=== PATIENT | female | born 1965 | race Caucasian/White ===

== ENCOUNTER 2018-12-08 11:56 | Emergency (ER) | payer MEDICAID, SELFPAY ==
[2018-07-19 10:42] VITALS: BMI 42.7
[2018-12-08 11:57] VITALS: BP 157/100; PULSE 72; RESP 17; TEMP 36.9; O2SAT 95; BMI 44.1
[2018-12-08] MEDS: Orphenadrine 60 MG/2 ML Ampul IM (12:42)
[2018-12-08] MEDS: Ketorolac 60 MG/2 ML Vial IM (12:42)
--- NOTE | 2018-12-08 13:10 | RAD_ITS ---
STUDY: X-RAY - LUMBAR SPINE REASON FOR EXAM: Female, 53 years old. TECHNIQUE: 3 view(s) of the lumbar spine were obtained. COMPARISON: Previous lumbar spine exam obtained on 07/19/2018 FINDINGS: Normal lumbar lordosis. There is moderate dextro scoliosis of the thoracolumbar spine. This was previously identified and is unchanged. Normal vertebral bodies and endplates. Normal disc space heights. The soft tissue structures are unremarkable. RAD/Lumbar Spine 2 or 3 Views IMPRESSION: Moderate dextroscoliosis of the thoracolumbar spine which is unchanged. Electronically Signed: Nando Bartholomew, at 14:05 EDT Tel , Service support ,
--- NOTE | 2018-12-08 14:15 | ED.DCSUM_ITS ---
- ER Visit Summary Date of Service: 12/08/18 Chief Complaint: Hurt back History of Present Illness: The patient is a 53 F who injured her back about 5 days ago. She was picking up a microwave and twisted. She complains of lower back pain. She tried ibuprofen, Tylenol, he is, and ice with no improvement. She injured it again yesterday when she was picking up something at the grocery store. She does complain of some bilateral toe paresthesias. Denies any saddle anesthesias. Denies change in bowel or bladder. Denies any fever or systemic symptoms. Denies GI or symptoms. Physical Examination: Afebrile and vital signs are unremarkable. Alert and oriented. Normal inspection. She has mid lumbar tenderness to palpation over the spine. Good strength and sensation except for bilateral toe paresthesias. Good range of motion. Otherwise exam unremarkable. Test Results: Lumbar x-ray shows scoliosis, nothing acute. Emergency Department Course and Treatment: Patient likely has myofascial pain. She was advised that she can have disc herniation. We will treat at this time with Toradol and Norflex. On reevaluation, she was feeling better. I told her that this will likely resolve with continued medication. She may need further imaging or evaluation if she has continued symptoms. She should return right away if she has any new or worsening issues. Treatment Plan: As above Disposition: Discharge Impression: 1. Lumbar back pain This note was generated with App [employer] dictation software. It may contain incorrect words, spelling, and punctuation that were not noted in review of the chart prior to signing ED Disposition - Plan for ED Patient: Referrals: Ivone Escobar DO [Primary Care Provider] -
--- NOTE | 2018-12-08 14:17 | ED.DEP ---
ED Disposition - Plan for ED Patient: Instructions: BACK PAIN (Acute or Chronic) Prescriptions: cycloBENZAPRine HCl [Flexeril] 10 mg PO TID PRN #20 tab PRN Reason: Muscle Spasm Prescription Printed Naproxen [Naprosyn] 500 mg PO BID PRN #20 tab Prescription Printed Referrals: Ivone Escobar DO [Primary Care Provider] -
[2018-12-08 14:35] VITALS: RESP 17
== END 2018-12-08 14:36 | disposition home or self-care (01) ==
LOC: ED 12:35
PROVIDERS: Emergency Provider Emergency Medicine; Family Provider Family Medicine; PCP Family Medicine
DX: M54.5 Low back pain (principal); I10 Essential (primary) hypertension; R56.9 Unspecified convulsions; Z79.899 Other long term (current) drug therapy
CPT/HCPCS: 72100; 96372; 99282

== ENCOUNTER → 2019-01-11 | Outpatient (CLI) | payer MEDICAID, SELFPAY ==
--- NOTE | 2019-01-11 15:26 | RAD_ITS ---
STUDY: X-RAY - PELVIS AND LEFT HIP REASON FOR EXAM: Female, 53 years old. Hip pain TECHNIQUE: 3 views of the pelvis and hip. COMPARISON: None. FINDINGS: There is a non-specific bowel gas pattern. Normal visualized soft tissue structures. Normal bilateral iliac wings, sacroiliac joints and visualized sacrum. Normal bilateral superior and inferior pubic rami. Normal pubic symphysis. Normal bilateral ischial tuberosities. Normal visualized femoral head. Normal acetabulum. Normal hip joint. RAD/HIP, UNI W/ Pelvis 2-3 Views IMPRESSION: Normal x-ray examination of the pelvis and hip. Electronically Signed: Juan Albarado MD at 15:45 EST Tel , Service support ,
== END | disposition home or self-care (01) ==
PROVIDERS: Family Provider Family Medicine; PCP Family Medicine; Referring Provider Physician Assistant; Visit Provider Physician Assistant
DX: M25.552 Pain in left hip (principal)
CPT/HCPCS: 73502

== ENCOUNTER → 2020-06-06 12:21 | Outpatient (CLI) | payer MEDICAID, SELFPAY ==
[2019-01-11 16:02] VITALS: BMI 44.1
--- NOTE | 2020-06-06 12:32 | RAD_ITS ---
STUDY: X-RAY - CERVICAL SPINE REASON FOR EXAM: Female, 54 years old. NECK PAIN TECHNIQUE: 6 view(s) of the cervical spine were obtained. COMPARISON: None FINDINGS: Normal anterior atlantoaxial articulation. Normal odontoid process. Normal cervical lordosis. Normal vertebral bodies and endplates. Normal disc space heights. Normal visualized intervertebral neuroforamina. The soft tissue structures are unremarkable. RAD/Cerv Spine 4 or 5 Views IMPRESSION: Normal x-ray examination of the visualized cervical spine. Electronically Signed: Kar Perales MD at 13:05 EDT , Service support ,
== END ==
PROVIDERS: PCP Family Medicine; Visit Provider Nurse Practitioner Family
DX: M54.2 Cervicalgia (principal)
CPT/HCPCS: 72050

== ENCOUNTER 2021-02-24 22:50 | Emergency (ER) | payer MEDICAID, SELFPAY ==
[2021-02-24 22:51] VITALS: BP 175/90; PULSE 101; RESP 21; TEMP 37.1; O2SAT 95; BMI 46.8
--- NOTE | 2021-02-24 23:03 | RAD_ITS ---
STUDY: X-RAY CHEST REASON FOR EXAM: Female, 55 years old. chest pain TECHNIQUE: Single AP portable view of the chest. COMPARISON: None. FINDINGS: No focal infiltrates or effusions. No pneumothorax. Normal size heart. Normal mediastinum and rolf. Normal visualized pulmonary arteries. Normal visualized aortic arch and descending thoracic aorta. Normal visualized thoracic spine. Normal visualized ribs, clavicles, and shoulders. There is no demonstrated abnormality of the visualized soft tissue structures of the upper abdomen. RAD/Chest 1 View (Portable) IMPRESSION: Normal x-ray examination of the chest. Electronically Signed: Bernardo Garcias MD at 23:37 EST , Service support ,
--- NOTE | 2021-02-24 23:03 | EKG12_ITS ---
Test Reason : CP Blood Pressure : / mmHG Vent. Rate : 094 BPM Atrial Rate : 094 BPM P-R Int : 166 ms QRS Dur : 076 ms QT Int : 370 ms P-R-T Axes : 040 003 033 degrees QTc Int : 462 ms Normal sinus rhythm Normal ECG Confirmed by LAWRENCE BRICEÑO, DAYTON ([id number]), video effects editor LIBIA HIGGINBOTHAM ([id number]) on 02/27/2021 9:25:06 AM Referred By: VIOLET Confirmed By:DAYTON BRAVO MD
--- NOTE | 2021-02-24 23:05 | EDS_ITS ---
HPI History of Present Illness Chief Complaint: Chest Pain Narrative Narrative: Patient with past medical history of hypertension, diabetes, GERD, presents with chest pain and epigastric pain that began at 730 this evening, approximately 3-1/2 hours ago. She states that she ate at 3 PM, then laid down for nap at 6 PM. Everything was fine. She awoke at 730 with epigastric to central chest pain and pressure. She drank elmer emily because she thought it was gas, but states that the pressure in her chest kept getting worse. She denies any leg swelling. No fevers or chills. No cough or shortness of breath. No diaphoresis. She states she was nauseated but did not vomit. She called EMS and was administered aspirin and nitroglycerin and states that her chest pressure has improved. She denies any exertional component to this. [facility] Medical History Atrial fibrillation Back complaints BP (high blood pressure) H/O Mohs micrographic surgery for skin cancer Heart valve problem Hemorrhoids IBS (irritable bowel syndrome) Knee pain Migraine Seizure Skin cancer uterine ablation Home Medications clonidine HCl 0.1 mg PO DAILY 07/27/13 [History Last Taken 07/27/13] amitriptyline 50 mg tablet 50 mg PO DAILY 07/19/18 [History Last Taken Unknown] divalproex 500 mg tablet,delayed release 500 mg PO BID 07/19/18 [History Last Taken Unknown] lamotrigine 100 mg tablet 150 mg PO DAILY tab 07/19/18 [History Last Taken Unknown] metoprolol succinate 100 mg tablet,extended release 24 hr 100 mg PO DAILY 0 07/19/18 [History Last Taken Unknown] metformin 500 mg PO BID 02/24/21 [History Last Taken Unknown] Allergy/AdvReac Type Severity Reaction Status Date / Time sumatriptan [From Imitrex] Allergy Chest Verified 01/11/19 15:56 tightness sumatriptan succinate Allergy Chest Verified 01/11/19 15:56 [From Imitrex] tightness acetaminophen [From Vicodin] AdvReac Vomiting Verified 01/11/19 15:56 hydrocodone [From Vicodin] AdvReac Vomiting Verified 01/11/19 15:56 Family History Other Adopted Surgical History H/O dilation and curettage History of Achilles tendon repair History of removal of cyst History of tubal ligation Hx of section Social History Smoking Status: Never smoker alcohol intake: current alcohol intake frequency: a few times a month Alcohol type: wine ROS ROS ED ROS Narrative Constitutional: No fever, no chills. HEENT: No sore throat. No neck pain. No loss of vision. No rhinorrhea. Cardiovascular: Positive central chest pain/pressure. No palpitations. No pedal edema. Respiratory: No cough, no shortness of breath. Abdominal: No abdominal pain. Positive nausea. No vomiting. Genitourinary: No dysuria. No hematuria. Musculoskeletal: No myalgias. No arthralgias. Neurologic: No headaches. No dizziness. No lightheadedness. Skin: No rash. No change in color. Psychiatric: No depression. No anxiety. EXAM Physical Exam Narrative Exam Narrative: Afebrile. Vital signs noted. HEENT: Normocephalic. Atraumatic. PERRL, EOMI. Neck soft and supple. No point tenderness or step off. Cardiovascular: Regular rate and rhythm. No murmurs, rubs, or gallops appreciated. Respiratory: No tachypnea. Lungs clear to auscultation bilaterally. Gastrointestinal: Abdomen soft, nontender, with normoactive bowel sounds. No rebound or guarding. Neurological: Awake. Alert. Nonfocal, nonlateralizing. Skin: No rash. Normal color. No pallor. Musculoskeletal: No pedal edema. Full range of motion extremities. Const Vital Signs: 02/24/21 22:51 02/24/21 22:57 02/24/21 23:16 Temperature 98.7 F Temperature Source Oral Pulse Rate 101 H Respiratory Rate 21 H Respiratory Effort Normal Blood Pressure 175/90 H Blood Pressure Mean 118 Pulse Ox 95 Oxygen Delivery Method Room Air Room Air 02/24/21 23:50 02/25/21 01:00 02/25/21 02:23 Temperature Temperature Source Pulse Rate 77 79 72 Respiratory Rate 15 16 16 Respiratory Effort Blood Pressure 145/87 H 149/94 H 163/98 H Blood Pressure Mean 106 112 119 Pulse Ox 97 97 97 Oxygen Delivery Method Room Air Room Air MDM MDM MDM Narrative Medical decision making narrative: Chest pain work-up was pursued. Her EKG demonstrates normal sinus rhythm at 94 bpm without ectopy or acute ST changes. Chest x-ray shows no acute process. CBC is grossly normal with a normal white count of 10.6, hemoglobin stable at 13.3. Electrolyte panel shows creatinine slightly elevated at 1.24, all other electrolytes unremarkable. BUN slightly elevated 20. Lipase normal at 242. Her initial troponin is negative at 3. Her next 2 samples at 2 hours were hemolyzed. All troponin which is most likely a 6-hour troponin is negative at 4. At this point in time, she may be having more GERD type symptoms. She was told to take her omeprazole as directed, but perhaps increase it to twice a day. She will follow up with her primary care physician. Return instructions were reviewed. Disposition was discharged home in stable condition. Lab Data Attestation: I reviewed the patient's lab results. Labs: Laboratory Results - last 24 hr 02/24/21 02/24/21 02/25/21 23:00 23:00 01:03 WBC 10.6 RBC 4.94 Hgb 13.3 Hct 42.8 MCV 86.6 MCH 26.9 L MCHC 31.1 L RDW Std Deviation 41.8 RDW Coeff of Zonia 13.3 Plt Count 285 MPV 11.1 Immature Gran % (Auto) 0.700 Neut % (Auto) 60.0 Lymph % (Auto) 28.8 Spencer % (Auto) 9.9 Eos % (Auto) 0.2 Baso % (Auto) 0.4 Absolute Neuts (auto) 6.4 Absolute Lymphs (auto) 3.04 Nucleated RBC % 0 Sodium 138 Potassium 4.0 Chloride 103 Carbon Dioxide 28.0 Anion Gap 7 BUN 20 H Creatinine 1.24 H Estim Creat Clear Calc 36.82 Est GFR (MDRD) Af Amer 58 L Est GFR (MDRD) Non-Af 48 L BUN/Creatinine Ratio 16.1 Glucose 207 H Calcium 9.1 Troponin I High Sens 3 Cancelled Lipase 242 02/25/21 02/25/21 01:50 02:19 WBC RBC Hgb Hct MCV MCH MCHC RDW Std Deviation RDW Coeff of Zonia Plt Count MPV Immature Gran % (Auto) Neut % (Auto) Lymph % (Auto) Spencer % (Auto) Eos % (Auto) Baso % (Auto) Absolute Neuts (auto) Absolute Lymphs (auto) Nucleated RBC % Sodium Potassium Chloride Carbon Dioxide Anion Gap BUN Creatinine Estim Creat Clear Calc Est GFR (MDRD) Af Amer Est GFR (MDRD) Non-Af BUN/Creatinine Ratio Glucose Calcium Troponin I High Sens Cancelled 4 Lipase Radiography Diagnostic Testing: Clinical Impression(s) from Imaging Studies Chest X-Ray 02/24/21 23:03 IMPRESSION: Normal x-ray examination of the chest. Electronically Signed: Bernardo Garcias MD at 23:37 EST , Service support , Discharge Plan Triage Chief Complaint: Chest Pain ED Provider: Mike Zazueta Dx/Rx/DC Orders Clinical Impression: Chest pain, Chronic GERD Instructions: ED Chest Pain, Uncertain Cause, ED GERD (Adult) Prescriptions: No Action amitriptyline 50 mg tablet 50 mg PO DAILY RF: 0 metoprolol succinate 100 mg tablet extended release 24 hr 100 mg PO DAILY RF: 0 divalproex 500 mg tablet,delayed release (DR/EC) 500 mg PO BID RF: 0 clonidine HCl 0.1 MG tablet 0.1 mg PO DAILY RF: 0 lamotrigine 100 mg tablet 150 mg PO DAILY RF: 0 metformin 500 mg tablet 500 mg PO BID RF: 0 Primary Care Provider: Ivone Escobar Referrals: Ivone Escobar DO [Primary Care Provider] - 02/27/21 Disposition Disposition: Home, Self Care
[2021-02-24] MEDS: 0.9% Normal Saline 1,000 ML 150 ML IV (23:15)
[2021-02-24 23:43] LABS: Absolute Lymphocyte Count 3.04 X10^3/uL (0.83-4.51); Absolute Neutrophil Count 6.4 X10^3/uL (2.0-7.7); Basophil# 0.04 X10^3/uL; Basophil% 0.4 % (0-1); Eosinophil# 0.02 X10^3/uL; Eosinophils% 0.2 % (0-5); Hematocrit 42.8 % (37-47); Hemoglobin 13.3 g/dL (12.0-15.0); Lymphocyte # 3.04 X10^3/ul (0.83-4.51); Lymphocyte % 28.8 % (19-41); Mean Corp Hgb Conc 31.1 g/dL (32-36); Mean Corpuscular Hgb 26.9 pg (27.0-32.0); Mean Corpuscular Volume 86.6 fL (81-99); Mean Platelet Vol. 11.1 fl (6.2-12.0); Monocyte# 1.05 X10^3/uL; Monocyte% 9.9 % (0-10); NRBC Flagged by Analyzer 0 % (0-5); Neutrophil # 6.35 X10^3/uL (2.7-7.7); Platelet Count 285 K/mm3 (150-450); RBC Distribution Width CV 13.3 % (11.6-14.6); RBC Distribution Width SD 41.8 fl (35.1-43.9); Red Blood Count 4.94 M/mm3 (4.2-5.4); White Blood Count 10.6 K/mm3 (4.4-11.0)
[2021-02-24 23:50] VITALS: BP 145/87; PULSE 77; RESP 15; O2SAT 97
[2021-02-25] LABS: Anion Gap 7 (5-15); BUN 20 mg/dL (7-18); BUN/Creat Ratio 16.1 RATIO (10-20); Calcium,Total 9.1 mg/dL (8.5-10.1); Chloride 103 mmol/L (98-107); Creatinine, Serum 1.24 mg/dL (0.55-1.02); EST Glomerular Filtration Rate 48 mL/min (>60); Est Glom Filt Rate - Afr Amer 58 mL/min (>60); Estimated Creatinine Clearance 36.82 ml/min; Glucose 207 mg/dL (74-106); Lipase 242 U/L (73-393); Sodium Level 138 mmol/L (136-145); Troponin-I HS 3 pg/mL (3.0-54.0)
[2021-02-25 01:00] VITALS: BP 149/94; PULSE 79; RESP 16; O2SAT 97
[2021-02-25 02:23] VITALS: BP 163/98; PULSE 72; RESP 16; O2SAT 97
[2021-02-25 02:45] LABS: Troponin-I HS 4 pg/mL (3.0-54.0)
[2021-02-25 03:04] VITALS: BP 170/87; PULSE 78; RESP 17; O2SAT 98
== END 2021-02-25 03:18 | disposition home or self-care (01) ==
PROVIDERS: Emergency Provider Emergency Medicine; PCP Family Medicine
DX: R07.89 Other chest pain (principal); K21.9 Gastro-esophageal reflux disease without esophagitis; E11.9 Type 2 diabetes mellitus without complications; I10 Essential (primary) hypertension; I48.91 Unspecified atrial fibrillation; K58.9 Irritable bowel syndrome, unspecified; G43.909 Migraine, unspecified, not intractable, without status migrainosus; R56.9 Unspecified convulsions; Z79.84 Long term (current) use of oral hypoglycemic drugs; Z79.899 Other long term (current) drug therapy
CPT/HCPCS: 36415; 71045; 80048; 83690; 84484; 85025; 93005; 96360; 96361; 99285; J7030; A4216

== ENCOUNTER → 2021-07-31 | Outpatient (CLI) | payer MEDICAID, SELFPAY | END | disposition home or self-care (01) | LOC: SL 20:51 | PROVIDERS: PCP Family Medicine; Referring Provider Family Medicine; Visit Provider Family Medicine | DX: G47.33 Obstructive sleep apnea (adult) (pediatric) (principal) | CPT/HCPCS: 95811 ==

== ENCOUNTER → 2021-10-28 | Outpatient (CLI) | payer MEDICAID, SELFPAY | END | disposition home or self-care (01) | LOC: SL 09:43 | PROVIDERS: PCP Family Medicine; Visit Provider Family Medicine | DX: Z00.00 Encounter for general adult medical examination without abnormal findings (principal) ==

== ENCOUNTER 2022-05-11 13:28 | Emergency (ER) | payer MEDICAID, SELFPAY ==
[2022-05-11 13:29] VITALS: BP 155/98; PULSE 84; RESP 16; TEMP 36.3; O2SAT 95; BMI 48.4
[2022-05-11 14:20] VITALS: BP 165/100; PULSE 86; RESP 20; O2SAT 98
[2022-05-11 14:24] VITALS: BMI 49.1
--- NOTE | 2022-05-11 16:00 | EKG12_ITS ---
Test Reason : GENERAL Blood Pressure : / mmHG Vent. Rate : 078 BPM Atrial Rate : 078 BPM P-R Int : 184 ms QRS Dur : 074 ms QT Int : 386 ms P-R-T Axes : 033 005 033 degrees QTc Int : 440 ms Normal sinus rhythm Low voltage QRS Borderline ECG Confirmed by MO BRICEÑO, BHAVIK ([id number]), primer expeditor and drier JAMAL DANIELS ([id number]) on 05/13/2022 9:47:05 AM Referred By: Confirmed By:BHAVIK HASSAN MD
--- NOTE | 2022-05-11 16:00 | CT_ITS ---
STUDY: CT BRAIN WITHOUT CONTRAST REASON FOR EXAM: Female, 56 years old. COMPLAINS OF DIZZINESS WITH HEAD MOVEMENTS SINCE WEDNESDAY, HAS HX OF VERTIGO BUT STATES IT FELT A LITTLE DIFFERENT headache Individualized dose optimization techniques were used for this CT. TECHNIQUE: Transaxial CT imaging of the brain was performed without administration of intravenous contrast material. COMPARISON: None FINDINGS: There are calcifications around the carotid artery. These are noted in the cavernous carotid arteries. Normal calvarium. Normal soft tissues. There is mild cerebral atrophy with widening of the extra-axial spaces and ventricular dilatation. There are areas of decreased attenuation within the white matter tracts of the supratentorial brain, consistent with microvascular disease changes. Normal basal ganglia and thalami. Normal brainstem. There is mild cerebellar atrophy. There is no intracranial hemorrhage. There are no findings of an acute ischemic infarction. Normal visualized paranasal sinuses. Right orbital proptosis. 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 ASPECTS Score for Acute Strokes: 12/08 CT/Brain/Head without Contrast IMPRESSION: . Right orbital proptosis. 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 Chronic involutional changes of the brain. Electronically Signed: Chaz Kinsey MD at 16:56 EDT ,
--- NOTE | 2022-05-11 16:01 | EX.ED.DYSGE1 ---
HPI History of Present Illness Chief Complaint: Dizziness Narrative Narrative: [id number] female presenting with dizziness. She has a history of vertigo but states this is somewhat different. She feels like she is lightheaded and off-balance. She states she can walk but she has to hold the lowery. Denies any head injury other than dizziness when she is walking. She does complain of a headache which has had in the right occipital region for 2 weeks. By her PCP who told her there is nothing to worry about. PFSH PFS Medical History Atrial fibrillation Back complaints BP (high blood pressure) H/O Mohs micrographic surgery for skin cancer Heart valve problem Hemorrhoids IBS (irritable bowel syndrome) Knee pain Migraine Post op infection Seizure Sepsis Skin cancer uterine ablation Home Medications clonidine HCl 0.1 mg tablet 0.1 mg PO DAILY 07/27/13 [History Last Taken 07/27/13] amitriptyline 50 mg tablet 50 mg PO DAILY 07/19/18 [History Last Taken Unknown] divalproex 500 mg tablet,delayed release 500 mg PO BID 07/19/18 [History Last Taken Unknown] lamotrigine 100 mg tablet 150 mg PO DAILY 07/19/18 [History Last Taken Unknown] metoprolol succinate 100 mg tablet,extended release 24 hr 100 mg PO DAILY 07/19/18 [History Last Taken Unknown] metformin 500 mg tablet 500 mg PO BID 02/24/21 [History Last Taken Unknown] meclizine 25 mg tablet 25 mg PO TID PRN dizziness #30 tabs 05/11/22 [Rx Last Taken Unknown] Allergy/AdvReac Type Severity Reaction Status Date / Time sumatriptan [From Imitrex] Allergy Chest Verified 01/11/19 15:56 tightness sumatriptan succinate Allergy Chest Verified 01/11/19 15:56 [From Imitrex] tightness hydrocodone [From Vicodin] AdvReac Vomiting Verified 01/11/19 15:56 Family History Other Adopted Surgical History H/O dilation and curettage History of Achilles tendon repair History of removal of cyst History of tubal ligation Hx of section Hx of cholecystectomy Social History adopted: Yes Smoking Status: Never smoker alcohol intake: current alcohol intake frequency: a few times a month Alcohol type: wine ROS ROS ED Constitutional Constitutional ED: Denies chills or fever(s) Eyes Eyes: Denies change in vision or diplopia ENT ENT ED: Denies rhinorrhea or sore throat Cardiovascular Cardiovascular: Denies chest pain or palpitations Respiratory/Chest Respiratory/Chest: Denies cough or dyspnea Gastrointestinal Gastrointestinal: Denies abdominal pain Genitourinary Genitourinary ED: Denies dysuria Musculoskeletal Musculoskeletal: Denies arthralgias or back pain Integumentary Denies abscess or Abrasions Neurologic Neurologic: Reports headache(s); Denies paresthesias Psychiatric Psychiatric: Denies anxiety or depression EXAM Physical Exam Const Vital Signs: 05/11/22 13:29 05/11/22 14:20 05/11/22 14:25 Temperature 97.4 F L Temperature Source Temporal Pulse Rate 84 86 Pulse Rate [Lying] Pulse Rate [Sitting (for 1 minute prior to obtaining)] Pulse Rate [Standing (for 1 minute prior to obtaining)] Respiratory Rate 16 20 H Respiratory Pattern Normal Blood Pressure 155/98 H 165/100 H Blood Pressure [Lying] Blood Pressure [Sitting (for 1 minute prior to obtaining)] Blood Pressure [Standing (for 1 minute prior to obtaining)] Blood Pressure Mean 117 121 Blood Pressure Mean [Lying] Blood Pressure Mean [Sitting (for 1 minute prior to obtaining)] Blood Pressure Mean [Standing (for 1 minute prior to obtaining)] Pulse Ox 95 98 Oxygen Delivery Method Room Air Room Air 05/11/22 16:17 Temperature Temperature Source Pulse Rate Pulse Rate [Lying] 86 Pulse Rate [Sitting (for 1 minute prior to obtaining)] 86 Pulse Rate [Standing (for 1 minute prior to obtaining)] 76 Respiratory Rate Respiratory Pattern Blood Pressure Blood Pressure [Lying] 162/99 H Blood Pressure [Sitting (for 1 minute prior to obtaining)] 156/103 H Blood Pressure [Standing (for 1 minute prior to obtaining)] 184/108 H Blood Pressure Mean Blood Pressure Mean [Lying] 120 Blood Pressure Mean [Sitting (for 1 minute prior to obtaining)] 120 Blood Pressure Mean [Standing (for 1 minute prior to obtaining)] 133 Pulse Ox Oxygen Delivery Method Positive well nourished General Appearance ED: NAD HEENT Reports moist mucous membranes HEENT Narrative: [place]-Hallpike positive Eyes PERRL and EOMs intact bilaterally Neck no lymphadenopathy Resp normal respiratory effort Cardio regular rate and regular rhythm GI normal to inspection, nondistended, normoactive bowel sounds Neuro oriented x3 and CN's II-XII intact bilaterally Sensorium / Orientation: alert Psych mental status grossly normal Skin no rashes or lesions noted and no wounds MDM MDM MDM Narrative Medical decision making narrative: 56-year-old female presenting with dizziness which she states is different than her typical of her vertigo. Patient states that he does also have a new onset headache from 2 weeks ago which in the right occipital lobe. She has not had any imaging of this. I am able to reproduce her dizziness on examination and she has a positive [place]-Hallpike's. Differential diagnosis includes but is not limited to orthostatic hypotension, dehydration, vertigo, valproic acid toxicity, hyperglycemia, cardiac arrhythmia, [employer] neoplasm, CVA. at this time given her headache which has been constant for 2 weeks I will obtain a CT brain. CBC for white blood cell count, hemoglobin, differential. BMP for renal function, electrolytes, glucose, anion gap. High-sensitivity troponin, EKG to assess for cardiac source. We will obtain a chest x-ray as well. Depakote level will be obtained. Orthostatic vitals. EKG on my interpretation shows normal sinus rhythm with a ventricular rate of 78 bpm without sign of ischemic change or dysrhythmia. High-sensitivity troponin is 10. Depakote level is normal at 65. CBC and BMP unremarkable. Orthostatic vital signs are negative. CT brain shows a coloboma. Patient knows of this. No evidence of stroke or any neoplastic lesion. Patient medicated with meclizine. She requested for headache and was given Compazine and Benadryl as well as Toradol. patient will be monitored until her dizziness is better. She will be discharged with a prescription for meclizine. Impression: 1. Headache 2. Vertigo Lab Data Attestation: I reviewed the patient's lab results. Labs: Laboratory Results - last 24 hr 05/11/22 05/11/22 05/11/22 16:16 16:16 16:16 WBC Cancelled Corrected WBC Cancelled RBC Cancelled Hgb Cancelled Hct Cancelled MCV Cancelled MCH Cancelled MCHC Cancelled RDW Std Deviation Cancelled RDW Coeff of Zonia Cancelled Plt Count Cancelled MPV Cancelled Immature Gran % (Auto) Cancelled Neut % (Auto) Cancelled Lymph % (Auto) Cancelled Early % (Auto) Cancelled Eos % (Auto) Cancelled Baso % (Auto) Cancelled Absolute Neuts (auto) Cancelled Absolute Lymphs (auto) Cancelled Total Counted Cancelled Neutrophils % (Manual) Cancelled Band Neutrophils % Cancelled Lymphocytes % (Manual) Cancelled Monocytes % (Manual) Cancelled Eosinophils % (Manual) Cancelled Basophils % (Manual) Cancelled Metamyelocytes % Cancelled Myelocytes % Cancelled Promyelocytes % Cancelled Blast Cells % Cancelled Plasma Cell % (Manual) Cancelled Other Cells % Cancelled Nucleated RBC % Cancelled Nucleated RBCs/100 WBC Cancelled Differential Comment Cancelled Diff Path Review Cancelled Hypersegmented Neuts Cancelled Atypical Lymphocytes Cancelled Reactive Lymphocytes Cancelled Smudge Cells Cancelled Toxic Granulation Cancelled Toxic Vacuolation Cancelled Dohle Bodies Cancelled Adithya Rods Cancelled Platelet Estimate Cancelled Plt Morphology Comment Cancelled RBC Morphology Cancelled Polychromasia Cancelled Hypochromasia Cancelled Poikilocytosis Cancelled Basophilic Stippling Cancelled Anisocytosis Cancelled Microcytosis Cancelled Macrocytosis Cancelled Spherocytes Cancelled Sickle Cells Cancelled Target Cells Cancelled Tear Drop Cells Cancelled Ovalocytes Cancelled Stomatocytes Cancelled Esparza-Kanorado Bodies Cancelled Abril Cells Cancelled Bite Cells Cancelled Crenated Cell Cancelled Acanthocytes (Spur) Cancelled Rouleaux Cancelled Schistocytes Cancelled Sodium 139 Potassium 4.0 Chloride 103 Carbon Dioxide 30.0 Anion Gap 6 BUN 17 Creatinine 0.95 Estim Creat Clear Calc 47.50 Est GFR (MDRD) Af Amer 78 Est GFR (MDRD) Non-Af 64 BUN/Creatinine Ratio 17.8 Glucose 89 Calcium 9.0 Troponin I High Sens 10 Valproic Acid 65 05/11/22 16:45 WBC 10.3 Corrected WBC RBC 5.11 Hgb 14.0 Hct 43.9 MCV 85.9 MCH 27.4 MCHC 31.9 L RDW Std Deviation 42.3 RDW Coeff of Zonia 13.4 Plt Count 264 MPV 10.1 Immature Gran % (Auto) 0.300 Neut % (Auto) 51.8 Lymph % (Auto) 37.2 Early % (Auto) 8.7 Eos % (Auto) 1.5 Baso % (Auto) 0.5 Absolute Neuts (auto) 5.4 Absolute Lymphs (auto) 3.84 Total Counted Neutrophils % (Manual) Band Neutrophils % Lymphocytes % (Manual) Monocytes % (Manual) Eosinophils % (Manual) Basophils % (Manual) Metamyelocytes % Myelocytes % Promyelocytes % Blast Cells % Plasma Cell % (Manual) Other Cells % Nucleated RBC % 0 Nucleated RBCs/100 WBC Differential Comment Diff Path Review Hypersegmented Neuts Atypical Lymphocytes Reactive Lymphocytes Smudge Cells Toxic Granulation Toxic Vacuolation Dohle Bodies Adithya Rods Platelet Estimate Plt Morphology Comment RBC Morphology Polychromasia Hypochromasia Poikilocytosis Basophilic Stippling Anisocytosis Microcytosis Macrocytosis Spherocytes Sickle Cells Target Cells Tear Drop Cells Ovalocytes Stomatocytes Esparza-Kanorado Bodies [place] Cells Bite Cells Crenated Cell Acanthocytes (Spur) Rouleaux Schistocytes Sodium Potassium Chloride Carbon Dioxide Anion Gap BUN Creatinine Estim Creat Clear Calc Est GFR (MDRD) Af Amer Est GFR (MDRD) Non-Af BUN/Creatinine Ratio Glucose Calcium Troponin I High Sens Valproic Acid Radiography Diagnostic Testing: Clinical Impression(s) from Imaging Studies Brain CT 05/11/22 16:00 IMPRESSION: . Right orbital proptosis. 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 Chronic involutional changes of the brain. Electronically Signed: Chaz Kinsey MD at 16:56 EDT Reading Location ID and State: [facility] / [place] , Service support , Discharge Plan Triage Chief Complaint: Dizziness ED Provider: Jeremie Jackson Dx/Rx/DC Orders Clinical Impression: Coloboma of eye Instructions: Self-Care for Headaches, ED Vertigo, Unspecified Prescriptions: New meclizine 25 mg tablet 25 mg PO TID PRN (Reason: dizziness) Qty: 30 0RF No Action amitriptyline 50 mg tablet 50 mg PO DAILY metoprolol succinate 100 mg tablet extended release 24 hr 100 mg PO DAILY divalproex 500 mg tablet,delayed release (DR/EC) 500 mg PO BID clonidine HCl 0.1 MG tablet 0.1 mg PO DAILY lamotrigine 100 mg tablet 150 mg PO DAILY metformin 500 mg tablet 500 mg PO BID Primary Care Provider: Ivone Escobar Referrals: Ivone Escobar DO [Primary Care Provider] - Disposition Disposition: Home, Self Care
[2022-05-11 16:17] VITALS: BP 156/103; BP 162/99; BP 184/108; PULSE 76; PULSE 86
[2022-05-11] MEDS: Meclizine HCl 25 MG Tablet PO (16:22)
[2022-05-11 16:57] LABS: Absolute Lymphocyte Count 3.84 X10^3/uL (0.83-4.51); Absolute Neutrophil Count 5.4 X10^3/uL (2.0-7.7); Basophil# 0.05 X10^3/uL; Basophil% 0.5 % (0-1); Eosinophil# 0.15 X10^3/uL; Eosinophils% 1.5 % (0-5); Hematocrit 43.9 % (37-47); Lymphocyte # 3.84 X10^3/ul (0.83-4.51); Lymphocyte % 37.2 % (19-41); Mean Corp Hgb Conc 31.9 g/dL (32-36); Mean Corpuscular Hgb 27.4 pg (27.0-32.0); Mean Corpuscular Volume 85.9 fL (81-99); Mean Platelet Vol. 10.1 fl (6.2-12.0); Monocyte% 8.7 % (0-10); NRBC Flagged by Analyzer 0 % (0-5); Neutrophil # 5.35 X10^3/uL (2.7-7.7); Neutrophil % 51.8 % (47-70); Platelet Count 264 K/mm3 (150-450); RBC Distribution Width CV 13.4 % (11.6-14.6); RBC Distribution Width SD 42.3 fl (35.1-43.9); Red Blood Count 5.11 M/mm3 (4.2-5.4); White Blood Count 10.3 K/mm3 (4.4-11.0)
[2022-05-11] MEDS: DiphenhydrAMINE 50 MG/ML Syringe 25 MG IV (17:04)
[2022-05-11] MEDS: proCHLORPERazine 10 MG/2 ML Vial IV (17:05)
[2022-05-11 17:07] LABS: Anion Gap 6 (5-15); BUN 17 mg/dL (7-18); BUN/Creat Ratio 17.8 RATIO (10-20); Chloride 103 mmol/L (98-107); Creatinine, Serum 0.95 mg/dL (0.55-1.02); EST Glomerular Filtration Rate 64 mL/min (>60); Est Glom Filt Rate - Afr Amer 78 mL/min (>60); Glucose 89 mg/dL (74-106); Sodium Level 139 mmol/L (136-145); Troponin-I HS 10 pg/mL (3.0-54.0); Valproic Acid (Depakene) Level 65 ug/mL (50-100)
[2022-05-11] MEDS: Ketorolac 15 MG/ML Vial IV (17:26)
--- NOTE | 2022-05-11 17:57 | ED.RN ---
Patient ambulated throughout the patient room without dizziness.
[2022-05-11 18:22] VITALS: RESP 16
== END 2022-05-11 18:23 | disposition home or self-care (01) ==
PROVIDERS: Emergency Provider Student in an Organized Health Care Education/Training Program; PCP Family Medicine; Visit Provider Student in an Organized Health Care Education/Training Program
DX: Q13.0 Coloboma of iris (principal); R42 Dizziness and giddiness; R51.9 Headache, unspecified
CPT/HCPCS: 70450; 80048; 80164; 84484; 85025; 93005; 96374; 96375; 99284; A4216

== ENCOUNTER 2022-09-14 14:56 | Emergency (ER) | payer MEDICAID, SELFPAY ==
[2022-09-14 14:58] VITALS: BP 194/112; PULSE 85; RESP 14; TEMP 36; O2SAT 98; BMI 50.1
--- NOTE | 2022-09-14 15:15 | EDS_ITS ---
HPI History of Present Illness Chief Complaint: Back Detail of Chief Complaint: Left lower back pain Informant: patient Onset/Context/Timing Onset: Yesterday Context: Gradual Onset Chronic pain exacerbated by: Any type of movement Injury: lifting, twisting, bending and repetitive motion Timing: Continuous and Waxes and wanes Quality: Dull and Aching Location: Lumbar Current Severity: Mild Maximum Severity: Severe Worsened by: improves with Movement, Ambulation, Bending and Lifting; worse with Night time pain Relieved by: Nothing Associated Symptoms Associated Symptoms: - (She denies saddle paresthesia or anesthesia i.e. altered sensation when she wipes, foot drop, buckling of her knees going up or down step and has had no recent dental procedure or any type of procedure.); Negative for Numbness, Tingling, Radiation to Right Leg, Radiation to Left Leg, Fever, Abdominal Pain, Dysuria, Unable to Ambulate, Unable to Transfer, Urinary Retention, Urinary Incontinence, Constipation or Fecal Incontinence Narrative Narrative: Patient is a 56-year-old woman with history of back problems. She has had epidural injections in the past by Dr. Ngo and 2 ablations. This past Wednesday she moved furniture. There is no history of direct trauma. She has taken Tylenol ibuprofen with no improvement. She denies radiation of the pain. She has no other symptoms other than left low back pain that is made worse with any type of movement or activity. Prior similar symptoms: Yes Recent Illness/Hospitalization: No [facility] Medical History Atrial fibrillation Back complaints BP (high blood pressure) H/O Mohs micrographic surgery for skin cancer Heart valve problem Hemorrhoids IBS (irritable bowel syndrome) Knee pain Migraine Post op infection Seizure Sepsis Skin cancer uterine ablation Home Medications clonidine HCl 0.1 mg tablet 0.1 mg PO DAILY 07/27/13 [History Last Taken 07/27/13] amitriptyline 50 mg tablet 50 mg PO DAILY 07/19/18 [History Last Taken Unknown] divalproex 500 mg tablet,delayed release 500 mg PO BID 07/19/18 [History Last Taken Unknown] lamotrigine 100 mg tablet 150 mg PO DAILY 07/19/18 [History Last Taken Unknown] metoprolol succinate 100 mg tablet,extended release 24 hr 100 mg PO DAILY 07/19/18 [History Last Taken Unknown] metformin 500 mg tablet 500 mg PO BID 02/24/21 [History Last Taken Unknown] meclizine 25 mg tablet 25 mg PO TID PRN dizziness #30 tabs 05/11/22 [Rx Last Taken Unknown] hydrocodone-acetaminophen 5-325mg 5mg-325mg 1 tab PO Q6H PRN PRN Pain 3 days #10 TABLETS 09/14/22 [Rx Last Taken Unknown] Allergy/AdvReac Type Severity Reaction Status Date / Time sumatriptan [From Imitrex] Allergy Chest Verified 09/14/22 14:57 tightness sumatriptan succinate Allergy Chest Verified 09/14/22 14:57 [From Imitrex] tightness hydrocodone [From Vicodin] AdvReac Vomiting Verified 09/14/22 14:57 Family History Other Adopted Surgical History H/O dilation and curettage History of Achilles tendon repair History of removal of cyst History of tubal ligation Hx of section Hx of cholecystectomy Social History (Updated 09/14/22 @ 15:[address] Matthew Noel MD) adopted: Yes household members: none Smoking Status: Never smoker alcohol intake: current alcohol intake frequency: a few times a month Alcohol type: wine ROS ROS ED Constitutional Constitutional ED: Denies chills, fever(s), subjective, sweats or weight loss Eyes Eyes: Denies blurry vision, change in vision or diplopia ENT ENT ED: Denies ear pain or rhinorrhea Cardiovascular Cardiovascular: Denies chest pain or palpitations Respiratory/Chest Respiratory/Chest: Denies dyspnea or dyspnea on exertion Gastrointestinal Gastrointestinal: Denies abdominal pain, constipation, diarrhea, nausea or vomiting Genitourinary Genitourinary ED: Denies dysuria, hematuria or urinary frequency Musculoskeletal Musculoskeletal: Reports back pain; Denies arthralgias, myalgias or neck pain Integumentary Denies rash Neurologic Neurologic: Denies paresthesias or weakness Hematologic/Lymphatic Hematologic/Lymphatic: Denies easy bleeding or easy bruising EXAM Physical Exam Narrative Exam Narrative: Blood pressure is elevated. Patient states her systolic pressure is normally in the 130s. She is reports compliance with her medication. Const Vital Signs: 09/14/22 14:58 Temperature 96.8 F L Temperature Source Temporal Pulse Rate 85 Respiratory Rate 14 Blood Pressure 194/112 H Blood Pressure Mean 139 Pulse Ox 98 Oxygen Delivery Method Room Air Positive well nourished, well developed and obese; Negative for cachectic, contractures or unkempt Constitutional Narrative: Patient grimaced when asked to move from chair to examination cot. General Appearance ED: well developed; Negative for unkempt, cachectic, contractures or pallor Nutritional Appearance: obese; Negative for cachectic HEENT Reports moist mucous membranes HEENT Narrative: Head is atraumatic normocephalic. Ears normal. Nares patent. Posterior pharynx unremarkable. Eyes PERRL and EOMs intact bilaterally General Eye ED: Negative for pale conjunctiva or scleral icterus Neck no lymphadenopathy, supple and no JVD Resp normal respiratory effort and clear to auscultation bilaterally Cardio regular rate, regular rhythm, S1 normal heart sound, S2 normal heart sound and no murmurs GI normal to inspection, nondistended, normoactive bowel sounds, soft to palpation, non-tender, non-distended and no masses GI Narrative: There is no abdominal bruit noted. There is no hepatosplenomegaly. Abdominal exam is limited due to body habitus. Back/Spine normal to inspection; Negative for no thoracic nor lumbar tenderness General Back: Negative for CVA tenderness Cervical Spine: Negative for cervical spine tenderness Thoracic Spine / Upper Back: paraspinal muscle tenderness left (Paralumbar region.) Lumbar Spine / Lower Back: ROM limited and straight leg raise negative bilaterally Extremity normal to inspection; Negative for no clubbing, cyanosis or edema Extremity Narrative: There is no clubbing or cyanosis noted DP pulses 2+ and symmetric. General Extremety ED: Yes edema; Negative for tenderness General Extremity: edema Neuro oriented x3 and no sensory deficits noted Neuro Narrative: Sensation over L3, L4, L5 and S1 dermatome are normal. Patella and ankle reflex are 2+ and symmetric. EHL is intact. 5/5 strength with plantar and dorsiflexion of the foot. Unable to perform 1 legged squat due to pain. Movement does exacerbate her pain. Sensorium / Orientation: alert Motor Exam: strength 5/5 throughout Deep Tendon Reflexes: Rt Patellar (L4): 2+, Lt Patellar (L4): 2+, Rt Ankle (S1): 2+ and Lt Ankle (S1): 2+ Deep Tendon Reflexes Back: Rt Patellar (L4): 2+, Lt Patellar (L4): 2+, Rt Ankle (S1): 2+ and Lt Ankle (S1): 2+ Plantar Reflex: Downgoing: bilateral (There is no clonus noted.) Psych mental status grossly normal Appearance: Negative for unkempt Skin no rashes or lesions noted and no wounds General Skin Exam: Negative for jaundice or pallor MDM MDM MDM Narrative Medical decision making narrative: Patient with muscular low back pain. Suspect patient's blood pressure is elevated due to the pain and not other etiology. We will treat her pain with IV opiate analgesics and reassess blood pressure and back pain. Since she has recently taken ibuprofen and has history of type 2 diabetes and renal disease BMP was obtained to assess renal function. History & Record Review Additional record(s) reviewed:: Prior outpatient record and Prior labs (Basic metabolic panel was unremarkable on April 2022.) Lab Data Attestation: I reviewed the patient's lab results. Lab results narrative: First troponin was normal, 5. Second troponin normal, 6. Delta is 1, which is normal. Patient was discharged home with appropriate home-going instructions Labs: Laboratory Results - last 24 hr 09/14/22 09/14/22 15:30 18:50 Sodium 141 Potassium 4.0 Chloride 107 Carbon Dioxide 28.0 Anion Gap 6 BUN 16 Creatinine 0.93 Estim Creat Clear Calc 48.52 Est GFR (MDRD) Af Amer 80 Est GFR (MDRD) Non-Af 66 BUN/Creatinine Ratio 17.2 Glucose 101 Calcium 8.8 Troponin I High Sens 5 6 Treatment and Re-Evaluation Narrative: Patient was reassessed at 1628. She states her back pain has not improved. She also is now complaining of pain that she localizes in the epigastric area as pressure. She denies history of coronary disease she states she had a stress test many years ago. She has never undergone cardiac catheterization. Since she does have risk factors will obtain EKG and troponin. Discharge Plan Triage Chief Complaint: Back ED Provider: Matthew Noel Dx/Rx/DC Orders Clinical Impression: Epigastric pressure, Acute left-sided low back pain, Hypertension Instructions: ED Back and Neck Pain, General Prescriptions: New hydrocodone-acetaminophen [hydrocodone-acetaminophen] 5-325 mg tablet 1 tab PO Q6H PRN PRN (Reason: Pain) 3 Days Qty: 10 0RF No Action amitriptyline 50 mg tablet 50 mg PO DAILY metoprolol succinate 100 mg tablet extended release 24 hr 100 mg PO DAILY divalproex 500 mg tablet,delayed release (DR/EC) 500 mg PO BID clonidine HCl 0.1 MG tablet 0.1 mg PO DAILY lamotrigine 100 mg tablet 150 mg PO DAILY metformin 500 mg tablet 500 mg PO BID meclizine 25 mg tablet 25 mg PO TID PRN (Reason: dizziness) Qty: 30 0RF Primary Care Provider: Ivone Escobar Referrals: Ivone Escobar DO [Primary Care Provider] - 3-5 Days if not improving Disposition Disposition: Home, Self Care
[2022-09-14] MEDS: Ondansetron 4 MG/2 ML Vial IV (15:34)
[2022-09-14] MEDS: Morphine 4 MG/ML Syringe IV (15:34)
[2022-09-14 16:13] LABS: Anion Gap 6 (5-15); BUN 16 mg/dL (7-18); BUN/Creat Ratio 17.2 RATIO (10-20); Calcium,Total 8.8 mg/dL (8.5-10.1); Chloride 107 mmol/L (98-107); Creatinine, Serum 0.93 mg/dL (0.55-1.02); EST Glomerular Filtration Rate 66 mL/min (>60); Est Glom Filt Rate - Afr Amer 80 mL/min (>60); Estimated Creatinine Clearance 48.52 ml/min; Glucose 101 mg/dL (74-106); Sodium Level 141 mmol/L (136-145)
--- NOTE | 2022-09-14 16:29 | EKG12_ITS ---
Test Reason : BACK PAIN Blood Pressure : / mmHG Vent. Rate : 082 BPM Atrial Rate : 082 BPM P-R Int : 174 ms QRS Dur : 074 ms QT Int : 396 ms P-R-T Axes : 042 004 032 degrees QTc Int : 462 ms Normal sinus rhythm Normal ECG When compared with ECG of 11-MAY-2022 16:04, No significant change was found Confirmed by LAWRENCE BRICEÑO, DAYTON ([id number]), scientific publications editor JAMAL DANIELS ([id number]) on 09/22/2022 7:32:02 AM Referred By: Confirmed By:DAYTON BRAVO MD
[2022-09-14] MEDS: morphine 8 MG/ML Syringe IV (16:59)
[2022-09-14 17:30] LABS: Troponin-I HS (w/2H Reflex) 5 pg/mL (3.0-54.0)
[2022-09-14 18:43] LABS: Reflex Troponin-HS? (from REC) Y
[2022-09-14 19:15] LABS: Troponin-I HS 6 pg/mL (3.0-54.0)
[2022-09-14 19:44] VITALS: BP 189/115; PULSE 87; RESP 17; O2SAT 98
== END 2022-09-14 19:45 | disposition home or self-care (01) ==
PROVIDERS: Emergency Provider Emergency Medicine; PCP Family Medicine; Visit Provider Emergency Medicine
DX: M54.50 Low back pain, unspecified (principal); E11.9 Type 2 diabetes mellitus without complications; G89.29 Other chronic pain; I10 Essential (primary) hypertension; E66.9 Obesity, unspecified
CPT/HCPCS: 80048; 84484; 93005; 96374; 96375; 96376; 99283; A4216; J2405